=== PATIENT | female | born 1995 | race Caucasian/White ===

== ENCOUNTER 2019-05-09 11:44 | Emergency (ER) | payer MEDICAID ==
[2019-05-09] MEDS ORDERED: HYDROcod/ACETAM 5/325 MG TABLET PO STA (12:20)
[2019-05-09] MEDS ORDERED: ONDANSETRON ODT 4 MG TABLET TL STA (12:20)
--- NOTE | 2019-05-09 12:25 | ED Physician Documentation ---
PD HPI ABD PAIN - Stated complaint Stated Complaint: LOWER BACK/ABD PX - Chief complaint Chief Complaint: Abd Pain - History obtained from History obtained from: Patient - History of Present Illness Timing - onset: Other (23-year-old woman with history of conservatively we manage kidney stones, history of pyelonephritis, and history of remote PE due to control, no longer on control and not currently on anticoagulation presents with 5 days of dark urine associated with hesitancy in which she feels like is a low urine output despite drinking a lot of water. She also has bilateral flank and lower abdominal pain, right worse than left. She has poor appetite. She denies fevers or chills. She does not have dysuria. She was seen at a clinic 2 days ago. Per her a urine dip was notable for small blood, she was put on Cipro for presumed pyelonephritis, culture is pending per her. She feels worse despite taking Cipro for 2 days.) - Additional information Additional information: She was taking some Kratom prior to this and increased her use for the symptoms. Review of Systems Constitutional: reports: Fatigue. denies: Fever, Chills Ears: reports: Reviewed and negative Nose: reports: Reviewed and negative Throat: reports: Reviewed and negative Cardiac: reports: Reviewed and negative PD PAST MEDICAL HISTORY - Past Medical History Past Medical History: Yes Cardiovascular: Pulmonary embolism : Kidney stones Psych: Anxiety Other Past Medical History: Kidney infection - Present Medications Home Medications: Ambulatory Orders Medication Instructions Recorded Confirmed oxyCODONE [Roxicodone] 5 mg PO Q4-6H PRN #15 tablet 05/09/19 - Allergies Allergies/Adverse Reactions: Allergies Allergy/AdvReac Type Severity Reaction Status Date / Time cephalexin [From Keflex] Allergy Rash Verified 05/09/19 11:55 - Social History Does the pt smoke?: Yes Smoking Status: Current some day smoker Does the pt drink ETOH?: No Does the pt have substance abuse?: No - Immunizations Immunizations are current?: Yes PD ED PE NORMAL - Vitals Vital signs reviewed: Yes - General General: Alert and oriented X 3, No acute distress - HEENT HEENT: PERRL, EOMI - Neck Neck: Supple, no meningeal sign, No bony TTP - Cardiac Cardiac: RRR, No murmur - Respiratory Respiratory: No respiratory distress, Clear bilaterally - Abdomen Abdomen: Other (Mild right-sided abdominal tenderness, moderate right greater than left CVA tenderness. No surgical signs) - Derm Derm: No rash - Extremities Extremities: No edema, No calf tenderness / cord - Neuro Neuro: Alert and oriented X 3, Normal speech Results - Vitals Vitals: Vital Signs - 24 hr 05/09/19 05/09/19 11:55 14:44 Temperature 37.2 C Heart Rate 94 70 Respiratory 15 18 Rate Blood Pressure 116/69 117/68 O2 Saturation 100 99 Oxygen O2 Source Room air - Labs Labs: Laboratory Tests 05/09/19 05/09/19 05/09/19 12:13 12:45 12:45 WBC 2.8 L RBC 4.00 L Hgb 12.4 Hct 38.2 MCV 95.5 MCH 31.0 MCHC 32.5 RDW 13.9 Plt Count 176 MPV 10.7 Neut # (Auto) 1.2 L Lymph # (Auto) 0.8 L [place] # (Auto) 0.6 Eos # (Auto) 0.2 Baso # (Auto) 0.0 Absolute Nucleated RBC 0.00 Band Neuts % (Manual) Not Reportable Abnorm Lymph % (Manual) Not Reportable Nucleated RBC % 0.0 Neutrophils # (Manual) Not Reportable Lymphocytes # (Manual) Not Reportable Monocytes # (Manual) Not Reportable Eosinophils # (Manual) Not Reportable Basophils # (Manual) Not Reportable Differential Comment MANUAL=AUTO DIFF WBC Morphology NORMAL APPEARANCE Platelet Estimate NORMAL (130-450,000) Platelet Morphology NORMAL APPEARANCE RBC Morph Micro Appear NORMAL APPEARANCE Sodium 138 Potassium 3.5 Chloride 104 Carbon Dioxide 25 Anion Gap 9.0 BUN 7 Creatinine 0.6 Estimated GFR (MDRD) 123 Glucose 103 H Calcium 8.8 Total Bilirubin 1.1 H AST 113 H ALT 240 H Alkaline Phosphatase 192 H Total Creatine Kinase 63 Total Protein 7.4 Albumin 3.9 Globulin 3.5 Albumin/Globulin Ratio 1.1 Lipase 21 L Urine Color YELLOW Urine Clarity CLEAR Urine pH 6.5 Ur Specific [place] >=1.030 H Urine Protein NEGATIVE Urine Glucose (UA) NEGATIVE Urine Ketones 15 H Urine Occult Blood NEGATIVE Urine Nitrite NEGATIVE Urine Bilirubin MODERATE H Urine Urobilinogen 1 (NORMAL) Ur Leukocyte Esterase NEGATIVE Ur Microscopic Review NOT INDICATED Urine Culture Comments NOT INDICATED Urine HCG, Qual NEGATIVE Acetaminophen Infectious [place] Assay 05/09/19 05/09/19 12:45 12:45 WBC RBC Hgb Hct MCV MCH MCHC RDW Plt Count MPV Neut # (Auto) Lymph # (Auto) [place] # (Auto) Eos # (Auto) Baso # (Auto) Absolute Nucleated RBC Band Neuts % (Manual) Abnorm Lymph % (Manual) Nucleated RBC % Neutrophils # (Manual) Lymphocytes # (Manual) Monocytes # (Manual) Eosinophils # (Manual) Basophils # (Manual) Differential Comment WBC Morphology Platelet Estimate Platelet Morphology RBC Morph Micro Appear Sodium Potassium Chloride Carbon Dioxide Anion Gap BUN Creatinine Estimated GFR (MDRD) Glucose Calcium Total Bilirubin AST ALT Alkaline Phosphatase Total Creatine Kinase Total Protein Albumin Globulin Albumin/Globulin Ratio Lipase Urine Color Urine Clarity Urine pH Ur Specific [place] Urine Protein Urine Glucose (UA) Urine Ketones Urine Occult Blood Urine Nitrite Urine Bilirubin Urine Urobilinogen Ur Leukocyte Esterase Ur Microscopic Review Urine Culture Comments Urine HCG, Qual Acetaminophen < 10 L Infectious [place] Assay NEGATIVE - Rads (name of study) abd sono Radiology: EMP read contemporaneously (Hemangioma, mildly heterogenous.) PD MEDICAL DECISION MAKING - ED course ED course: 23-year-old woman with abdominal pain, previously diagnosed as pyelonephritis based on potentially blood in the urine. Culture was pending and put on Cipro in the interim. Today her urine only has bilirubin in it. And this is corroborated by modestly elevated liver enzymes. An abdominal ultrasound was negative for a causative etiology. Hepatitis panel is pending. I suspect it is mostly due to kratom use. She is also been using Tylenol and is advised to stop that for now. Departure - Departure Disposition: 01 Home, Self Care Clinical Impression: Liver cell injury Abdominal pain Qualifiers: Abdominal location: generalized Qualified Code(s): R10.84 - Generalized abdominal pain Condition: Good Record reviewed to determine appropriate education?: Yes Instructions: Abdominal Pain Prescriptions: oxyCODONE [Roxicodone] 5 mg PO Q4-6H PRN #15 tablet PRN Reason: Pain Comments: As discussed, your liver enzymes are somewhat elevated. I suspect this is mostly due to the Kratom. Stop all use of that. Also stop the ciprofloxacin. You can take ibuprofen for needed as needed for pain, and the oxycodone when that is insufficient. Do not drink or drive while taking oxycodone. Return for new worsening symptoms. I would follow-up with your doctor in about 3 to 5 days for recheck and recheck of your liver enzymes.
[2019-05-09 12:34] LABS: BILIRUBIN,URINE MODERATE (NEGATIVE); GLUCOSE, URINE (UA) NEGATIVE (NEGATIVE); KETONES,URINE (UA) 15 mg/dL (NEGATIVE); LEUKOCYTE ESTERASE, URINE NEGATIVE (NEGATIVE); NITRITE,URINE NEGATIVE (NEGATIVE); OCCULT BLOOD,URINE NEGATIVE (NEGATIVE); PH,URINE 6.5 PH (5.0-7.5); PROTEIN,URINE NEGATIVE (NEGATIVE); UROBILINOGEN,URINE 1 (NORMAL) E.U./dL (NORMAL)
[2019-05-09 12:41] LABS: CLARITY,URINE CLEAR (CLEAR)
[2019-05-09 12:42] LABS: HCG UR QUAL NEGATIVE
[2019-05-09] MEDS ORDERED: SODIUM CHLORIDE 0.9% 1,000 ML IV ONE (12:44)
[2019-05-09 12:54] LABS: BASOPHILS % (AUTO) 1.5 %; EOSINOPHILS # (AUTO) 0.2 10^3/uL (0.0-0.7); EOSINOPHILS % (AUTO) 6.9 %; HGB - HEMOGLOBIN 12.4 g/dL (12.0-16.0); LYMPHOCYTES # (AUTO) 0.8 10^3/uL (1.5-3.5); LYMPHOCYTES % (AUTO) 28.4 %; MEAN CORPUSCULAR HGB CONC 32.5 g/dL (32.0-36.0); MEAN CORPUSCULAR VOLUME 95.5 fL (81.0-99.0); MEAN PLATELET VOLUME 10.7 fL (7.9-10.8); MONOCYTES # (AUTO) 0.6 10^3/uL (0.0-1.0); MONOCYTES % (AUTO) 20.4 %; NEUTROPHILS # (AUTO) 1.2 10^3/uL (1.5-6.6); NEUTROPHILS % (AUTO) 42.8 %; PLT - PLATELET COUNT 176 10^3/uL (130-450); RED CELL DISTRIBUTION WIDTH 13.9 % (12.0-15.0); WHITE BLOOD COUNT 2.8 x10^3/uL (4.8-10.8)
[2019-05-09 13:10] LABS: ALBUMIN 3.9 g/dL (3.2-5.5); ALBUMIN/GLOBULIN RATIO 1.1 (1.0-2.2); BILIRUBIN,TOTAL 1.1 mg/dL (0.2-1.0); CALCIUM 8.8 mg/dL (8.5-10.3); CREATININE 0.6 mg/dL (0.4-1.0); TOTAL PROTEIN 7.4 g/dL (6.7-8.2)
[2019-05-09 14:07] LABS: DIFFERENTIAL COMMENT MANUAL=AUTO DIFF; PLATELET ESTIMATE, MANUAL NORMAL (130-450,000) (NORMAL); PLATELET MORPHOLOGY NORMAL APPEARANCE (NORMAL); RBC MORPHOLOGY (MULTIPLE) NORMAL APPEARANCE (NORMAL)
[2019-05-09] MEDS ORDERED: KETOROLAC 30 MG/ML VIAL IVP STA (14:22)
--- NOTE | 2019-05-09 15:07 | Ultrasound Report ---
Reason: abd pain, elevated liver enz Procedure Date: 05/09/2019 Accession Number: [id number] / [id number] Procedure: US - Abdomen Limited CPT Code: FULL RESULT: EXAM: ABDOMEN ULTRASOUND LIMITED, RUQ EXAM DATE: 05/09/2019 02:16 PM. CLINICAL HISTORY: Abd pain, elevated liver enz. COMPARISON: None. TECHNIQUE: Real-time scanning was performed with static images obtained. FINDINGS: Liver: Normal in size , heterogeneous 15.9 cm. Echogenic right lobe 0.8 x 0.6 x 0.8 cm avascular density. Main portal vein flow: Hepatopetal. Gallbladder: Normal. No stones, wall thickening, or sonographic Nunn's sign. Biliary System: CBD measures 4 mm. No intrahepatic or extrahepatic ductal dilatation. Other: None. IMPRESSION: Right lobe 0.8 cm density possible hemangioma. Mildly heterogeneous liver RADIA
[2019-05-09 15:31] VITALS: BP 112/70
[2019-05-11 11:48] LABS: HEPATITIS A IGM NON-REACTIVE (NON-REACTIVE); HEPATITIS B SURFACE ANTIGEN NON-REACTIVE (NON-REACTIVE); HEPATITIS C ANTIBODY NON-REACTIVE (NON-REACTIVE)
== END 2019-05-09 16:06 | disposition home or self-care (01) ==
LOC: ED 11:44
DX: S36.119A Unspecified injury of liver, initial encounter (principal); X58.XXXA Exposure to other specified factors, initial encounter; R74.8 Abnormal levels of other serum enzymes; R10.84 Generalized abdominal pain; F17.200 Nicotine dependence, unspecified, uncomplicated; Z87.440 Personal history of urinary (tract) infections; Z87.442 Personal history of urinary calculi; Z86.711 Personal history of pulmonary embolism
CPT/HCPCS: 36415; 76705; 80053; 80074; 80307; 81003; 81025; 82550; 83690; 85025; 86308; 96360; 99283; 99284; A9270; Q0162; 81001; 87086